=== PATIENT | male | born 1955 | race Asian ===

== ENCOUNTER 2018-11-30 18:28 | Emergency (ER) | payer OTHER ==
[~2018-11-30] VITALS: Ht 172.7 cm; Wt 64.9 kg
[~2018-11-30 18:28] MED LIST: ATORVASTATIN CA40 M1 PO; BENAZEPRIL10 M1 GT; CELEBREX200 MG PO; GLIPIZIDE1 PO1; JANUMET1 TAB PO; LATANOPROST; LYRICA75 M1 PO; METHIMAZOLE10 MG PO; PLA75 PO
[2018-11-30 18:53] VITALS: Ht 172.7 cm; Wt 64.9 kg
[2018-11-30 22:15] VITALS: BP 107/72
== END 2018-11-30 22:15 | disposition home or self-care (01) ==
LOC: ED 18:28
DX: S00.03XA Contusion of scalp, initial encounter (principal); S09.8XXA Other specified injuries of head, initial encounter; I10 Essential (primary) hypertension; W01.0XXA Fall on same level from slipping, tripping and stumbling without subsequent striking against object, initial encounter; Z86.73 Personal history of transient ischemic attack (TIA), and cerebral infarction without residual deficits; Y93.89 Activity, other specified; Y92.89 Other specified places as the place of occurrence of the external cause; Y99.8 Other external cause status

== ENCOUNTER 2019-08-07 12:12 | Inpatient (IN) | payer OTHER ==
[~2019-08-07] VITALS: Ht 172.7 cm; Wt 92.8 kg
[2019-08-07 12:57] LABS: PLATELET COUNT 217 x10^3mcL (130-400)
[2019-08-07 13:03] LABS: ALT/SGPT 498 U/L (16-63); AST/SGOT 879 U/L (15-37); BILIRUBIN DIRECT 15.59 mg/dL (0.0-0.2); CALCIUM 7.8 mg/dL (8.5-10.1); CHLORIDE SERUM 93 mmol/L (98-107); GLUCOSE SERUM 78 mg/dL (74-106); POTASSIUM SERUM 5.4 mmol/L (3.5-5.1); SODIUM SERUM 127 mmol/L (136-145); TOTAL PROTEIN, SERUM 7.3 g/dL (6.4-8.2)
[2019-08-07 13:10] LABS: ALBUMIN 1.9 g/dL (3.4-5.0); GFR1 5 mL/min
[2019-08-07 13:12] LABS: BILIRUBIN TOTAL 18.61 mg/dL (0.20-1.00); CREATININE SERUM 10.4 mg/dL (0.7-1.3)
[2019-08-07 13:16] LABS: RED CELL DISTRIBUTION WIDTH 20.3 % (11.5-14.5)
[2019-08-07 13:22] LABS: ALKALINE PHOSPHATASE 1370 U/L (46-116)
[2019-08-07 14:16] LABS: ATYPICAL LYMPH 0 %; BAND NEUTROPHIL 0 % (0-10); BASOPHIL 0 % (0-2); MONOCYTE 2 % (0-7); SEGMENTED NEUTROPHILS 96 % (37-75)
[2019-08-07 14:17] LABS: rbc morphology (normal/abnorm) ABNORMAL (NORMAL)
[2019-08-07 15:32] LABS: T3 TOTAL 0.81 ng/mL
[2019-08-07 15:38] LABS: FREE T4 1.18 ng/dL (0.76-1.46); FREE THYROXINE INDEX 2.1 ug/dL (1.4-4.5); T4(THYROXINE) 6.5 ug/dL (4.7-13.3)
[2019-08-07 15:46] LABS: FREE T4 1.19 ng/dL (0.76-1.46)
[2019-08-07 16:30] VITALS: BP 128/98
[2019-08-07 17:40] VITALS: BP 93/41
[2019-08-07 17:51] VITALS: BP 128/98
[2019-08-07 18:30] VITALS: BP 97/52
[2019-08-07 19:28] LABS: CALCIUM 6.9 mg/dL (8.5-10.1); CARBON DIOXIDE 14.7 mmol/L (21-32); POTASSIUM SERUM 5.3 mmol/L (3.5-5.1)
[2019-08-07 19:29] LABS: CREATININE SERUM 9.6 mg/dL (0.7-1.3)
[2019-08-07 20:00] VITALS: BP 91/53
[2019-08-08] VITALS (13 sets, daily range): BP systolic 84–138; BP diastolic 32–66
[2019-08-08 06:36] LABS: CALCIUM 6.2 mg/dL (8.5-10.1); CARBON DIOXIDE 19.9 mmol/L (21-32); MAGNESIUM 2.1 mg/dL (1.8-2.4); POTASSIUM SERUM 4.3 mmol/L (3.5-5.1)
[2019-08-08 07:08] LABS: ALBUMIN 1.8 g/dL (3.4-5.0); CREATININE SERUM 9.9 mg/dL (0.7-1.3); TOTAL PROTEIN, SERUM 5.8 g/dL (6.4-8.2)
[2019-08-08 07:10] LABS: BILIRUBIN TOTAL 15.5 mg/dL (0.20-1.00)
[2019-08-08 07:54] LABS: PLATELET COUNT 167 x10^3mcL (130-400); RED CELL DISTRIBUTION WIDTH 20.6 % (11.5-14.5)
[2019-08-08 07:56] LABS: BAND NEUTROPHIL 5 % (0-10); SEGMENTED NEUTROPHILS 70 % (37-75)
[2019-08-08 09:01] LABS: rbc morphology (normal/abnorm) NORMAL (NORMAL)
[2019-08-09] VITALS (17 sets, daily range): BP systolic 90–149; BP diastolic 42–74
[2019-08-09 10:25] LABS: CALCIUM 6.1 mg/dL (8.5-10.1); MAGNESIUM 1.8 mg/dL (1.8-2.4)
[2019-08-09 10:28] LABS: ALBUMIN 2.3 g/dL (3.4-5.0)
[2019-08-09 10:32] LABS: POTASSIUM SERUM 2.9 mmol/L (3.5-5.1)
[2019-08-09 10:33] LABS: BILIRUBIN TOTAL 13.5 mg/dL (0.20-1.00); CREATININE SERUM 8.9 mg/dL (0.7-1.3)
[2019-08-09 11:37] LABS: BASOPHIL % 0.2 % (0-2)
[2019-08-09 11:52] LABS: PLATELET COUNT 99 x10^3mcL (130-400); RED CELL DISTRIBUTION WIDTH 17.4 % (11.5-14.5)
[2019-08-09 18:06] LABS: BASOPHIL % 0.1 % (0-2)
[2019-08-09 18:11] LABS: CARBON DIOXIDE 20.1 mmol/L (21-32)
[2019-08-09 18:19] LABS: CALCIUM 5.9 mg/dL (8.5-10.1); CREATININE SERUM 9.8 mg/dL (0.7-1.3); POTASSIUM SERUM 2.8 mmol/L (3.5-5.1)
[2019-08-09 18:46] LABS: PLATELET COUNT 83 x10^3mcL (130-400); RED CELL DISTRIBUTION WIDTH 17.9 % (11.5-14.5)
[2019-08-10] VITALS (18 sets, daily range): BP systolic 84–129; BP diastolic 42–62
[2019-08-10 05:16] LABS: BASOPHIL % 0 % (0-2); PLATELET COUNT 86 x10^3mcL (130-400); RED CELL DISTRIBUTION WIDTH 17.7 % (11.5-14.5)
[2019-08-10 05:18] LABS: rbc morphology (normal/abnorm) ABNORMAL (NORMAL)
[2019-08-10 05:22] LABS: BILIRUBIN TOTAL 6.64 mg/dL (0.20-1.00); CALCIUM 6.2 mg/dL (8.5-10.1); CARBON DIOXIDE 19.4 mmol/L (21-32); PHOSPHOROUS 7.4 mg/dL (2.5-4.9)
[2019-08-10 05:31] LABS: ALBUMIN 1.9 g/dL (3.4-5.0); POTASSIUM SERUM 2.7 mmol/L (3.5-5.1); TOTAL PROTEIN, SERUM 4.7 g/dL (6.4-8.2)
[2019-08-10 15:13] LABS: BASOPHIL % 0 % (0-2); PLATELET COUNT 89 x10^3mcL (130-400)
[2019-08-10 15:39] LABS: CALCIUM 6.5 mg/dL (8.5-10.1); CARBON DIOXIDE 19.5 mmol/L (21-32)
[2019-08-10 15:50] LABS: CREATININE SERUM 10.3 mg/dL (0.7-1.3); POTASSIUM SERUM 2.8 mmol/L (3.5-5.1)
[2019-08-11] VITALS (11 sets, daily range): BP systolic 109–141; BP diastolic 47–57
[2019-08-11 06:27] LABS: BILIRUBIN TOTAL 4.5 mg/dL (0.20-1.00); CARBON DIOXIDE 20.1 mmol/L (21-32)
[2019-08-11 06:36] LABS: ALBUMIN 1.8 g/dL (3.4-5.0)
[2019-08-11 06:38] LABS: POTASSIUM SERUM 2.8 mmol/L (3.5-5.1)
[2019-08-11 07:24] LABS: BASOPHIL % 0 % (0-2); PLATELET COUNT 92 x10^3mcL (130-400); RED CELL DISTRIBUTION WIDTH 17.6 % (11.5-14.5)
[2019-08-12 00:16] VITALS: BP 118/63
[2019-08-12 03:09] VITALS: BP 148/58
[2019-08-12 05:59] LABS: PLATELET COUNT 122 x10^3mcL (130-400); RED CELL DISTRIBUTION WIDTH 16.8 % (11.5-14.5)
[2019-08-12 06:01] LABS: CALCIUM 7.2 mg/dL (8.5-10.1); MAGNESIUM 1.9 mg/dL (1.8-2.4); POTASSIUM SERUM 3.2 mmol/L (3.5-5.1)
[2019-08-12 06:04] LABS: CREATININE SERUM 9.6 mg/dL (0.7-1.3)
[2019-08-12 07:25] VITALS: BP 151/62
[2019-08-12 08:17] VITALS: Ht 172.7 cm; Wt 92.8 kg
[2019-08-12 11:10] VITALS: BP 117/57
[2019-08-12 13:57] LABS: BAND NEUTROPHIL 0 % (0-10); BASOPHIL 0 % (0-2); MONOCYTE 2 % (0-7); SEGMENTED NEUTROPHILS 95 % (37-75)
[2019-08-12 13:58] LABS: PLATELET MORPHOLOGY PLATELETS DECREASED; ovalocyte/elliptocyte 2+; rbc morphology (normal/abnorm) ABNORMAL (NORMAL)
[2019-08-12 15:30] VITALS: BP 102/46
[2019-08-12 20:00] VITALS: BP 118/56
[2019-08-13] VITALS (7 sets, daily range): BP systolic 105–121; BP diastolic 53–67
[2019-08-13 05:51] LABS: PLATELET COUNT 147 x10^3mcL (130-400)
[2019-08-13 05:59] LABS: BILIRUBIN TOTAL 4.1 mg/dL (0.20-1.00); CALCIUM 7.3 mg/dL (8.5-10.1); CARBON DIOXIDE 25.4 mmol/L (21-32); MAGNESIUM 1.8 mg/dL (1.8-2.4); POTASSIUM SERUM 3.4 mmol/L (3.5-5.1)
[2019-08-13 06:00] LABS: ALBUMIN 1.6 g/dL (3.4-5.0); TOTAL PROTEIN, SERUM 5.1 g/dL (6.4-8.2)
[2019-08-13 06:01] LABS: CREATININE SERUM 8.8 mg/dL (0.7-1.3); RED CELL DISTRIBUTION WIDTH 17.7 % (11.5-14.5)
[2019-08-13 06:13] LABS: BAND NEUTROPHIL 10 % (0-10); SEGMENTED NEUTROPHILS 80 % (37-75)
[2019-08-13 06:14] LABS: PLATELET MORPHOLOGY PLATELETS DECREASED; rbc morphology (normal/abnorm) ABNORMAL (NORMAL)
[2019-08-13 21:30] LABS: microscopic required? YES; urine erythrocyte 3+ (NEGATIVE)
[2019-08-14 03:37] VITALS: BP 120/62
[2019-08-14 05:19] LABS: BILIRUBIN TOTAL 3.2 mg/dL (0.20-1.00); CALCIUM 7.1 mg/dL (8.5-10.1); CARBON DIOXIDE 21.1 mmol/L (21-32); MAGNESIUM 1.9 mg/dL (1.8-2.4); POTASSIUM SERUM 4.4 mmol/L (3.5-5.1)
[2019-08-14 05:21] LABS: ALBUMIN 1.5 g/dL (3.4-5.0); TOTAL PROTEIN, SERUM 5.3 g/dL (6.4-8.2)
[2019-08-14 05:22] LABS: CREATININE SERUM 9.8 mg/dL (0.7-1.3)
[2019-08-14 05:24] LABS: BASOPHIL % 0.1 % (0-2); PLATELET COUNT 163 x10^3mcL (130-400); RED CELL DISTRIBUTION WIDTH 18.1 % (11.5-14.5)
[2019-08-14 05:28] LABS: rbc morphology (normal/abnorm) ABNORMAL (NORMAL)
[2019-08-14 08:24] VITALS: BP 128/63
[2019-08-14 11:43] VITALS: BP 110/61
[2019-08-14 15:27] VITALS: BP 129/65
[2019-08-14 19:30] VITALS: BP 130/64
[2019-08-14 23:10] VITALS: BP 130/59
[2019-08-15 03:34] VITALS: BP 116/62
[2019-08-15 05:56] LABS: BILIRUBIN TOTAL 2.92 mg/dL (0.20-1.00); CALCIUM 7.4 mg/dL (8.5-10.1); CARBON DIOXIDE 26.3 mmol/L (21-32); POTASSIUM SERUM 3.9 mmol/L (3.5-5.1)
[2019-08-15 05:57] LABS: ALBUMIN 1.4 g/dL (3.4-5.0)
[2019-08-15 05:58] LABS: BASOPHIL % 0.1 % (0-2); CREATININE SERUM 7.8 mg/dL (0.7-1.3); PLATELET COUNT 134 x10^3mcL (130-400); RED CELL DISTRIBUTION WIDTH 16.1 % (11.5-14.5)
[2019-08-15 08:00] VITALS: BP 125/64
[2019-08-15 12:00] VITALS: BP 121/63
[2019-08-15 16:32] VITALS: BP 119/61
[2019-08-15 20:16] VITALS: BP 126/57
[2019-08-16 05:36] VITALS: BP 130/62
[2019-08-16 09:06] VITALS: BP 106/58
[2019-08-16 13:19] VITALS: BP 97/51
[2019-08-16 17:15] VITALS: BP 129/64
[2019-08-16 20:45] VITALS: BP 114/55
[2019-08-17 05:32] VITALS: BP 126/66
[2019-08-17 06:53] LABS: BILIRUBIN TOTAL 3.29 mg/dL (0.20-1.00); CALCIUM 7.8 mg/dL (8.5-10.1); CARBON DIOXIDE 29.6 mmol/L (21-32); MAGNESIUM 1.9 mg/dL (1.8-2.4); POTASSIUM SERUM 3.3 mmol/L (3.5-5.1); TOTAL PROTEIN, SERUM 6.2 g/dL (6.4-8.2)
[2019-08-17 06:55] LABS: PLATELET COUNT 161 x10^3mcL (130-400)
[2019-08-17 07:05] LABS: RED CELL DISTRIBUTION WIDTH 16.5 % (11.5-14.5)
[2019-08-17 09:47] VITALS: BP 142/66
[2019-08-17 11:19] LABS: BAND NEUTROPHIL 2 % (0-10); BASOPHIL 0 % (0-2); MONOCYTE 9 % (0-7); MYELOCYTE 1 % (0-2); SEGMENTED NEUTROPHILS 79 % (37-75)
[2019-08-17 11:20] LABS: PLATELET MORPHOLOGY PLATELETS NORMAL; rbc morphology (normal/abnorm) ABNORMAL (NORMAL)
[2019-08-17 13:52] VITALS: BP 139/66
[2019-08-17 17:03] VITALS: BP 145/73
[2019-08-17 20:39] VITALS: BP 125/62
[2019-08-18 05:51] VITALS: BP 120/64
[2019-08-18 07:14] LABS: BASOPHIL % 0.4 % (0-2); PLATELET COUNT 148 x10^3mcL (130-400)
[2019-08-18 07:40] LABS: RED CELL DISTRIBUTION WIDTH 18.1 % (11.5-14.5)
[2019-08-18 08:00] LABS: BILIRUBIN TOTAL 2.8 mg/dL (0.20-1.00); CARBON DIOXIDE 30.1 mmol/L (21-32); POTASSIUM SERUM 3.2 mmol/L (3.5-5.1)
[2019-08-18 08:27] VITALS: BP 109/60
[2019-08-18 08:38] LABS: ALBUMIN 1.8 g/dL (3.4-5.0); TOTAL PROTEIN, SERUM 5.7 g/dL (6.4-8.2)
[2019-08-18 08:39] LABS: CREATININE SERUM 6.7 mg/dL (0.7-1.3)
[2019-08-18 13:14] VITALS: BP 104/54
[2019-08-18 16:15] VITALS: BP 101/47
[2019-08-18 19:25] VITALS: BP 100/62
[2019-08-19 05:07] VITALS: BP 116/63
[2019-08-19 06:27] LABS: BASOPHIL % 0.3 % (0-2); PLATELET COUNT 169 x10^3mcL (130-400)
[2019-08-19 06:48] LABS: RED CELL DISTRIBUTION WIDTH 19.5 % (11.5-14.5)
[2019-08-19 07:02] LABS: BILIRUBIN DIRECT 2.01 mg/dL (0.0-0.2); BILIRUBIN TOTAL 2.6 mg/dL (0.20-1.00); CARBON DIOXIDE 28.6 mmol/L (21-32); POTASSIUM SERUM 3.4 mmol/L (3.5-5.1); TOTAL PROTEIN, SERUM 6.2 g/dL (6.4-8.2)
[2019-08-19 07:23] LABS: ALBUMIN 1.8 g/dL (3.4-5.0)
[2019-08-19 08:08] VITALS: BP 110/63
[2019-08-19 12:11] VITALS: BP 117/54
[2019-08-19 16:25] VITALS: BP 118/58
[2019-08-19 20:45] VITALS: BP 117/63
[2019-08-20 06:03] VITALS: BP 111/57
[2019-08-20 06:36] LABS: BASOPHIL % 0.3 % (0-2); PLATELET COUNT 135 x10^3mcL (130-400)
[2019-08-20 06:45] LABS: RED CELL DISTRIBUTION WIDTH 19.9 % (11.5-14.5)
[2019-08-20 07:35] LABS: BILIRUBIN TOTAL 2.6 mg/dL (0.20-1.00); CALCIUM 8.1 mg/dL (8.5-10.1); CARBON DIOXIDE 28.2 mmol/L (21-32)
[2019-08-20 07:38] LABS: ALBUMIN 1.8 g/dL (3.4-5.0); CREATININE SERUM 4.3 mg/dL (0.7-1.3); POTASSIUM SERUM 2.9 mmol/L (3.5-5.1)
[2019-08-20 09:41] VITALS: BP 109/66
[2019-08-20 12:07] VITALS: BP 108/61
[2019-08-20 12:27] VITALS: BP 121/63
== END 2019-08-20 12:48 | disposition short-term general hospital (02) | DRG 871 ==
LOC: ED 12:12 → DU 15:09 → IC 15:09 → DU 08-15 14:29
PROVIDERS: Emergency Medicine; Internal Medicine Gastroenterology; Internal Medicine Infectious Disease; Internal Medicine Nephrology; Internal Medicine Pulmonary Disease; Surgery; ADMIT Internal Medicine Pulmonary Disease
PROC: 30233N1 Transfusion of Nonautologous Red Blood Cells into Peripheral Vein, Percutaneous Approach (ICD-10-PCS; 2019-08-08)
PROC: 0BH17EZ Insertion of Endotracheal Airway into Trachea, Via Natural or Artificial Opening (ICD-10-PCS; 2019-08-08)
PROC: 5A1945Z Respiratory Ventilation, 24-96 Consecutive Hours (ICD-10-PCS; 2019-08-08)
PROC: 0F798DZ Dilation of Common Bile Duct with Intraluminal Device, Via Natural or Artificial Opening Endoscopic (ICD-10-PCS; principal; 2019-08-08 09:15)
PROC: B54BZZA Ultrasonography of Right Lower Extremity Veins, Guidance (ICD-10-PCS; 2019-08-08 09:15)
PROC: 06HY33Z Insertion of Infusion Device into Lower Vein, Percutaneous Approach (ICD-10-PCS; 2019-08-08 09:15)
PROC: 30233M1 Transfusion of Nonautologous Plasma Cryoprecipitate into Peripheral Vein, Percutaneous Approach (ICD-10-PCS; 2019-08-09)
PROC: 30233K1 Transfusion of Nonautologous Frozen Plasma into Peripheral Vein, Percutaneous Approach (ICD-10-PCS; 2019-08-10)
PROC: 05HN33Z Insertion of Infusion Device into Left Internal Jugular Vein, Percutaneous Approach (ICD-10-PCS; 2019-08-20)
PROC: B544ZZA Ultrasonography of Left Jugular Veins, Guidance (ICD-10-PCS; 2019-08-20)
DX: A41.9 Sepsis, unspecified organism (principal); R65.21 Severe sepsis with septic shock; K72.00 Acute and subacute hepatic failure without coma; G93.41 Metabolic encephalopathy; N18.6 End stage renal disease; J96.01 Acute respiratory failure with hypoxia; N17.0 Acute kidney failure with tubular necrosis; E87.1 Hypo-osmolality and hyponatremia; E87.2 Acidosis; I12.0 Hypertensive chronic kidney disease with stage 5 chronic kidney disease or end stage renal disease; K92.2 Gastrointestinal hemorrhage, unspecified; K80.63 Calculus of gallbladder and bile duct with acute cholecystitis with obstruction; E11.22 Type 2 diabetes mellitus with diabetic chronic kidney disease; D64.9 Anemia, unspecified; E11.51 Type 2 diabetes mellitus with diabetic peripheral angiopathy without gangrene; E80.6 Other disorders of bilirubin metabolism; E05.90 Thyrotoxicosis, unspecified without thyrotoxic crisis or storm; D45 Polycythemia vera; I25.10 Atherosclerotic heart disease of native coronary artery without angina pectoris; Z86.73 Personal history of transient ischemic attack (TIA), and cerebral infarction without residual deficits; Z89.512 Acquired absence of left leg below knee; Z95.1 Presence of aortocoronary bypass graft; Z79.899 Other long term (current) drug therapy
CPT/HCPCS: 36556; 36600; 43262; 78226; 82962; 84439; 92526-GN; 92610-GN; 97110-GP; 97530-GP; A4301; A4628; A9537; C1729; C1769; C1884; C1887; C2625; C9113; G0378; G0480; J0171; J0330; J0610; J0690; J0696; J1170; J1450; J1610; J1644; J1720; J1815; J1940; J2001; J2060; J2185; J2250; J2270; J2543; J2704; J2765; J2916; J2997; J3010; J3370; J3411; J3430; J3480; J3490; J7030; J7040; J7050; J7120; P9012; P9016; P9047; P9059; Q0092; Q9967

== ENCOUNTER 2019-09-18 12:12 | Inpatient (IN) | payer OTHER ==
[~2019-09-18] VITALS: Ht 170.2 cm; Wt 68.0 kg
[2019-09-18 13:18] LABS: BASOPHIL % 1.3 % (0-2); PLATELET COUNT 276 x10^3mcL (130-400); RED CELL DISTRIBUTION WIDTH 17.5 % (11.5-14.5)
[2019-09-18 13:43] LABS: BILIRUBIN TOTAL 0.9 mg/dL (0.20-1.00); CALCIUM 8.2 mg/dL (8.5-10.1); CARBON DIOXIDE 31.8 mmol/L (21-32); CREATININE SERUM 3.1 mg/dL (0.7-1.3); POTASSIUM SERUM 4.6 mmol/L (3.5-5.1); TOTAL PROTEIN, SERUM 7.7 g/dL (6.4-8.2)
[2019-09-18 13:55] LABS: ALBUMIN 2.7 g/dL (3.4-5.0)
[2019-09-18 14:37] LABS: microscopic required? YES; urine erythrocyte 2+ (NEGATIVE)
[2019-09-18 17:59] VITALS: BP 94/25
[2019-09-18 18:45] VITALS: BP 102/48
[2019-09-18 20:36] VITALS: BP 111/58
[2019-09-19 05:36] VITALS: BP 118/51
[2019-09-19 06:41] LABS: BASOPHIL % 0.3 % (0-2); PLATELET COUNT 226 x10^3mcL (130-400)
[2019-09-19 06:50] LABS: CALCIUM 8.1 mg/dL (8.5-10.1); CARBON DIOXIDE 28.9 mmol/L (21-32); CREATININE SERUM 2.3 mg/dL (0.7-1.3); MAGNESIUM 1.6 mg/dL (1.8-2.4); POTASSIUM SERUM 3.7 mmol/L (3.5-5.1)
[2019-09-19 07:03] LABS: RED CELL DISTRIBUTION WIDTH 17.9 % (11.5-14.5)
[2019-09-19 08:02] VITALS: BP 92/48
[2019-09-19 08:38] VITALS: Ht 170.2 cm; Wt 68.0 kg
[2019-09-19 11:50] VITALS: BP 90/46
[2019-09-19 16:37] VITALS: BP 147/78
[2019-09-19 21:05] VITALS: BP 92/44
[2019-09-19 21:47] VITALS: BP 97/47
[2019-09-20 00:04] VITALS: BP 100/48
[2019-09-20 04:59] VITALS: BP 120/44
[2019-09-20 06:21] LABS: BASOPHIL % 0.3 % (0-2)
[2019-09-20 06:48] LABS: BILIRUBIN TOTAL 0.74 mg/dL (0.20-1.00); CALCIUM 8.3 mg/dL (8.5-10.1); CARBON DIOXIDE 28.8 mmol/L (21-32); CREATININE SERUM 1.9 mg/dL (0.7-1.3); PHOSPHOROUS 1.7 mg/dL (2.5-4.9); POTASSIUM SERUM 4.3 mmol/L (3.5-5.1); TOTAL PROTEIN, SERUM 7.1 g/dL (6.4-8.2)
[2019-09-20 07:02] LABS: ALBUMIN 2.4 g/dL (3.4-5.0)
[2019-09-20 08:57] VITALS: BP 94/53
[2019-09-20 09:18] LABS: PLATELET COUNT 255 x10^3mcL (130-400)
[2019-09-20 09:24] LABS: RED CELL DISTRIBUTION WIDTH 17.8 % (11.5-14.5)
[2019-09-20 11:50] VITALS: BP 84/50
[2019-09-20] MEDS ORDERED: CIPRO250 MG PO (14:11)
[2019-09-20] MEDS ORDERED: PROA PO (14:11)
[2019-09-20 15:50] VITALS: BP 99/57
[2019-09-20 20:09] VITALS: BP 94/52
[2019-09-21 05:22] VITALS: BP 112/53
[2019-09-21 06:42] LABS: BASOPHIL % 0.4 % (0-2); PLATELET COUNT 277 x10^3mcL (130-400)
[2019-09-21 06:43] LABS: CALCIUM 8.4 mg/dL (8.5-10.1); CARBON DIOXIDE 28.4 mmol/L (21-32); CREATININE SERUM 1.7 mg/dL (0.7-1.3); MAGNESIUM 1.7 mg/dL (1.8-2.4); POTASSIUM SERUM 4.2 mmol/L (3.5-5.1)
[2019-09-21 07:54] LABS: RED CELL DISTRIBUTION WIDTH 17.1 % (11.5-14.5)
[2019-09-21 09:02] VITALS: BP 98/38
[2019-09-21 11:40] VITALS: BP 101/53
[2019-09-21 13:18] VITALS: BP 101/53
== END 2019-09-21 15:06 | disposition home health service (06) | DRG 871 ==
LOC: ED 12:12 → EDBD 12:12 → DU 15:27
PROVIDERS: Emergency Medicine; Internal Medicine; ADMIT Internal Medicine Pulmonary Disease
DX: A41.9 Sepsis, unspecified organism (principal); N18.6 End stage renal disease; I21.A1 Myocardial infarction type 2; N39.0 Urinary tract infection, site not specified; I12.0 Hypertensive chronic kidney disease with stage 5 chronic kidney disease or end stage renal disease; N17.9 Acute kidney failure, unspecified; E11.22 Type 2 diabetes mellitus with diabetic chronic kidney disease; E78.00 Pure hypercholesterolemia, unspecified; R65.20 Severe sepsis without septic shock; E86.0 Dehydration; D63.1 Anemia in chronic kidney disease; E83.39 Other disorders of phosphorus metabolism; E03.9 Hypothyroidism, unspecified; E11.51 Type 2 diabetes mellitus with diabetic peripheral angiopathy without gangrene; D75.1 Secondary polycythemia; R31.9 Hematuria, unspecified; I25.10 Atherosclerotic heart disease of native coronary artery without angina pectoris; Z99.2 Dependence on renal dialysis; Z68.23 Body mass index [BMI] 23.0-23.9, adult; Z95.1 Presence of aortocoronary bypass graft; Z89.512 Acquired absence of left leg below knee; Z91.15 Patient's noncompliance with renal dialysis; Z79.84 Long term (current) use of oral hypoglycemic drugs; Z86.73 Personal history of transient ischemic attack (TIA), and cerebral infarction without residual deficits; Z90.49 Acquired absence of other specified parts of digestive tract; Z79.899 Other long term (current) drug therapy
CPT/HCPCS: 36600; 82962; 83880; G0378; J1644; J2001; J2270; J2405; J2543; J3475; J3490; J7030; J7050; Q0092

== ENCOUNTER 2019-11-19 12:06 | Observation (INO) | payer OTHER ==
[~2019-11-19] VITALS: Ht 172.7 cm; Wt 61.2 kg
[~2019-11-19 12:06] MED LIST changes: +CIPRO250 MG PO; +PROA PO
[2019-11-19 12:12] VITALS: Ht 172.7 cm; Wt 61.2 kg
[2019-11-19 12:49] LABS: BASOPHIL % 0.6 % (0-2); PLATELET COUNT 259 x10^3mcL (130-400); RED CELL DISTRIBUTION WIDTH 12.9 % (11.5-14.5)
[2019-11-19 13:09] LABS: CALCIUM 9.3 mg/dL (8.5-10.1); CARBON DIOXIDE 27.5 mmol/L (21-32); CREATININE SERUM 1.3 mg/dL (0.7-1.3); POTASSIUM SERUM 4.9 mmol/L (3.5-5.1)
[2019-11-19 13:13] LABS: BILIRUBIN TOTAL 0.4 mg/dL (0.20-1.00)
[2019-11-19 13:15] LABS: TOTAL PROTEIN, SERUM 8.3 g/dL (6.4-8.2)
[2019-11-19] MEDS ORDERED: ASPIR 8181 MG PO (14:47)
[2019-11-19] MEDS ORDERED: CARVEDILOL ER40 MG PO (14:51)
[2019-11-19] MEDS ORDERED: LOTENSIN40 MG PO (14:52)
[2019-11-19] MEDS ORDERED: NATURE'S BLEND F1 MG PO (14:52)
[2019-11-19] MEDS ORDERED: PLAVIX75 M1 PO (14:52)
[2019-11-19] MEDS ORDERED: ATORVASTATIN CA40 M1 PO (14:53)
[2019-11-19] MEDS ORDERED: PROTONIX40 MG/Pac1 PO (14:53)
[2019-11-19] MEDS ORDERED: FEOSOL65 M1 PO (14:54)
[2019-11-19] MEDS ORDERED: GLIPIZIDE XL10 M1 PO (14:54)
[2019-11-19] MEDS ORDERED: CARAFATE1 GM PO (14:54)
[2019-11-19] MEDS ORDERED: HORIZANT300 MG PO (14:54)
[2019-11-19] MEDS ORDERED: CELEBREX200 MG PO (14:55)
[2019-11-19 17:06] VITALS: BP 91/53
[2019-11-19 17:28] VITALS: BP 106/51
[2019-11-19 20:50] VITALS: BP 117/45
[2019-11-19 22:29] VITALS: BP 117/45
== END 2019-11-19 23:58 | disposition short-term general hospital (02) ==
LOC: ED 12:06 → MU 15:03
PROVIDERS: Emergency Medicine; ADMIT Hospitalist
DX: R55 Syncope and collapse (principal); K85.90 Acute pancreatitis without necrosis or infection, unspecified; I10 Essential (primary) hypertension; E11.42 Type 2 diabetes mellitus with diabetic polyneuropathy; Z86.73 Personal history of transient ischemic attack (TIA), and cerebral infarction without residual deficits
CPT/HCPCS: 82962; G0378; J7030